=== PATIENT | female | born 1945 | race Caucasian/White ===

== ENCOUNTER → 2017-05-14 | Day surgery (SDC) | payer MEDICARE, OTHER ==
[~2017-05-14] VITALS: Ht 170.2 cm; Wt 78.3 kg
[~2017-05-14] MED LIST: 0.9% Sodium Chloride 1,000 ML IV SCH; ASPI-973 PO; CHOL200025 PO; LOSA25TA21 PO; NIFE90TA31 PO; OMEP20CA11 PO; PRAV40TA PO; SULF1TAB7 PO; Sodium Chloride LOK Flush 10 mL Syringe IV PRN; UBID100C16 PO; fentaNYL-PF 50 mCg/mL 2 mL Inj IVPUSH PRN
[2017-05-14 09:58] VITALS: BP 144/75; PULSE 77; RESP 15; O2SAT 95
[2017-05-14 11:26] VITALS: BP 114/57; PULSE 68; RESP 12; O2SAT 98
[2017-05-14 11:37] VITALS: BP 108/54; PULSE 59; RESP 11; O2SAT 98
[2017-05-14 11:43] VITALS: BP 131/77; PULSE 63; RESP 12; O2SAT 96
--- NOTE | 2017-05-14 13:01 | ENDO ---
[address] [address] ENDOSCOPY PROCEDURE PATIENT: JIMY RIVERA : 1945 MR#: [id number] ADMIT: 05/14/2017 JOB ID: [id number] DATE OF SERVICE: 05/14/2017 PRIMARY PROVIDER: Jennifer Rosales DNP PROCEDURE: Colonoscopy with hot snare polypectomies. INDICATIONS: A 71-year-old female with a family history of colon cancer and a prior failed colonoscopy in 2003. She has demonstrated positive fecal occult blood test and reports for screening. EQUIPMENT: [facility]-180AL SEDATION: 5 mg Versed, 75 mcg fentanyl. COMPLICATIONS: None identified. BOWEL PREPARATION: Fair. Very adequate. PROCEDURE INFORMATION: After the risks and benefits were explained, written and verbal informed consent was obtained. The patient was brought into the endoscopy suite and placed into the left lateral decubitus position. Sedation was achieved as above. A digital rectal examination was accomplished. Mild internal hemorrhoids were noted. No other significant pathology was appreciated. The scope was introduced into the rectum and advanced to the cecum as identified by the appendiceal orifice and ileocecal valve. The scope was slowly withdrawn to carefully examine the mucosa for any defects or lesions. Multiple direct views were made through the dentate line for exclusion of pathology. The colon was decompressed. The scope removed from the patient who tolerated the procedure well. FINDINGS: At the hepatic flexure, there was a sessile polyp, perhaps 7 mm removed with hot snare. A little more distal in the transverse colon was a larger polyp on a corner that was perhaps about 1 cm in its greatest dimension. It was a challenging location to gain position on. We used a Jumbo snare for this and removed it in piecemeal format. After our efforts, it appeared as though all of the polyp had been resected. No other significant pathology was appreciated throughout. ENDOSCOPIC DIAGNOSES: 1. Colon polyps. 2. Mild internal hemorrhoids. RECOMMENDATIONS: 1. Await histopathology. 2. Repeat colonoscopy in three years. cc: Jennifer Rosales DNP
--- NOTE | 2017-05-16 09:58 | PATH ---
SURGICAL PATHOLOGY Attending Physician:Bridget Segovia CASE STATUS: Signed Out PATIENT NAME: JIMY RIVERA PID: [id number] : 1945 DATE COLLECTED:05/14/2017 23:45 SPECIMEN: 1: Colon, Polyp 2: Colon, Polyp CLINICAL HISTORY: 1). HEPATIC FLEXTURE POLYP 2). TRANSVERSE POLYP FINAL DIAGNOSIS: 1. Hepatic Flexure Polyp, Biopsy: Multiple fragments of tubular adenoma. 2. Transverse Polyp, Biopsy: Multiple fragments of tubular adenoma. ICD10: D12.6 GROSS DESCRIPTION: The specimen is received in two formalin filled containers labeled with the patient's name. 1). The specimen is labeled "hepatic flexure polyp" and consists of multiple extremely tiny portions of tissue which aggregate to 0.2 x 0.2 x 0.1 CM. The specimen is entirely submitted in cassette 1A. 2). The specimen is labeled "transverse polyp" and consists of multiple fragments of tissue which aggregate to 0.6 x 0.5 x 0.4 CM. The specimen is entirely submitted in cassette 2A. 05/15/2017[place] ICD-9 CODES: CPT CODES: 1: 76514 2: 60453 Electronically Signed Out Jabier Werner MD [facility] Pathology [facility] [address] [place] [address] Technical component performed at [facility], [facility] [address], [place], [address]
== END | disposition home or self-care (01) ==
LOC: END 00:48
PROVIDERS: ATTEND Internal Medicine Gastroenterology
DX: Z12.11 Encounter for screening for malignant neoplasm of colon (principal); D12.2 Benign neoplasm of ascending colon; D12.3 Benign neoplasm of transverse colon; K64.8 Other hemorrhoids; Z86.010 Personal history of colon polyps; Z80.0 Family history of malignant neoplasm of digestive organs; I10 Essential (primary) hypertension; E78.5 Hyperlipidemia, unspecified; G47.00 Insomnia, unspecified; M34.9 Systemic sclerosis, unspecified
CPT/HCPCS: 45385; 99153; G0500; J2250; J3010; J7030